=== PATIENT | female | born 1975 ===

== ENCOUNTER 2019-10-31 14:07 | Emergency (ER) | payer OTHER ==
[~2019-10-31] VITALS: Ht 162.6 cm; Wt 80.3 kg
== END 2019-10-31 17:37 | disposition home or self-care (01) ==
LOC: ER 14:07
DX: M54.2 Cervicalgia (principal); M62.838 Other muscle spasm; R07.89 Other chest pain; F41.8 Other specified anxiety disorders

== ENCOUNTER 2020-01-26 11:47 | Emergency (ER) | payer OTHER ==
[~2020-01-26] VITALS: Ht 160 cm; Wt 79.4 kg
== END 2020-01-26 22:19 | disposition home or self-care (01) ==
LOC: ER 11:47
DX: B34.9 Viral infection, unspecified (principal); B96.0 Mycoplasma pneumoniae [M. pneumoniae] as the cause of diseases classified elsewhere; Z03.818 Encounter for observation for suspected exposure to other biological agents ruled out; R05 Cough; R07.0 Pain in throat; R53.81 Other malaise

== ENCOUNTER 2020-01-28 14:04 | Inpatient (IN) | payer OTHER ==
[~2020-01-28] VITALS: Ht 162.6 cm; Wt 150.0 kg
[2020-01-28] MEDS ORDERED: ZITHROMAX500 MG (14:36)
--- NOTE | 2020-01-28 14:37 | NUR ---
SE RECIBE PTRE. FEMENINA ALERTA CONCIENTE Y OROIENTADA QUE REFIERE DIF PARA RESPIRAR, SOLOR EN CUERPO PECHO Y ESPALDA. REFIERE SALIO CON MICROPLASMA. SE REALIZA EKG Y SE PRESENTA A MAGDYEvelyn PICHARDO PARA EVALUACION Y FIRMA. SE PASA PTE. A SECCION K.
--- NOTE | 2020-01-28 15:44 | NUR ---
PTE ALERTA Y ORIENTADA X3, SE LE JAQUELIN MUESTRAS DE LAB. [facility] ORDEN MEDICA BAJO MEDIDAS ASEPTICAS. SE CANALIZA AREA DAVID DE EDEMA Y DE ENROJECIMIENTO. SE LE ADMINISTRAN MEDICAMENTOS PETEY ORDEN MEDICA. SE NOTIFICA A TERAPISTA DE TURNO SOBRE ABG Y TERAPIAS PENDIENTES. SE EDUCA A PTE SOBRE TRATAMIENTO MEDICO. PTE MANEJADO POR YANNA.
== END 2020-01-30 16:22 | disposition home or self-care (01) | DRG 177 ==
LOC: ER 14:04 → MEDJ 19:10
PROVIDERS: ADMIT Specialist; ATTEND Specialist
PROC: 3E0F7GC Introduction of Other Therapeutic Substance into Respiratory Tract, Via Natural or Artificial Opening (ICD-10-PCS; principal; 2020-01-28)
PROC: 4A033R1 Measurement of Arterial Saturation, Peripheral, Percutaneous Approach (ICD-10-PCS; 2020-01-28)
PROC: 8E0ZXY6 Isolation (ICD-10-PCS; 2020-01-28)
PROC: 4A12X4Z Monitoring of Cardiac Electrical Activity, External Approach (ICD-10-PCS; 2020-01-29)
DX: U07.1 COVID-19 (principal); J12.89 Other viral pneumonia; J15.7 Pneumonia due to Mycoplasma pneumoniae; A41.1 Sepsis due to other specified staphylococcus; F41.1 Generalized anxiety disorder

== ENCOUNTER 2020-06-09 02:49 | Emergency (ER) | payer OTHER ==
[~2020-06-09] VITALS: Ht 160 cm; Wt 83.9 kg
[~2020-06-09 02:49] MED LIST: ZITHROMAX500 MG
[2020-06-09] MEDS ORDERED: ZYNCOF 20-400120 ML PO (05:39)
[2020-06-09] MEDS ORDERED: PHENAGIL TABLE1 EACH PO (05:39)
== END 2020-06-09 05:53 | disposition home or self-care (01) ==
LOC: ER 02:49
DX: U07.1 COVID-19 (principal); J06.9 Acute upper respiratory infection, unspecified; B34.9 Viral infection, unspecified

== ENCOUNTER 2020-06-16 16:36 | Emergency (ER) | payer OTHER ==
[~2020-06-16] VITALS: Ht 160 cm; Wt 81.6 kg
[~2020-06-16 16:36] MED LIST changes: +PHENAGIL TABLE1 EACH PO; +ZYNCOF 20-400120 ML PO
== END 2020-06-16 20:51 | disposition home or self-care (01) ==
LOC: ER 16:36
DX: N83.292 Other ovarian cyst, left side (principal); R10.2 Pelvic and perineal pain

== ENCOUNTER 2020-07-10 18:48 | Emergency (ER) | payer OTHER ==
[~2020-07-10] VITALS: Ht 162.6 cm; Wt 77.1 kg
[2020-07-10] MEDS ORDERED: PRILOSEC OTC20 MG (19:04)
== END 2020-07-10 23:40 | disposition home or self-care (01) ==
LOC: ER 18:48
DX: R10.13 Epigastric pain (principal); R07.89 Other chest pain; M54.2 Cervicalgia; Z03.818 Encounter for observation for suspected exposure to other biological agents ruled out

== ENCOUNTER 2020-07-12 19:35 | Emergency (ER) | payer OTHER ==
[~2020-07-12] VITALS: Ht 162.6 cm; Wt 77.1 kg
[~2020-07-12 19:35] MED LIST changes: +PRILOSEC OTC20 MG
[2020-07-12] MEDS ORDERED: DOLOGEN CAPLET1 EACH PO (22:55)
[2020-07-12] MEDS ORDERED: CARAFATE1 GM PO (22:55)
[2020-07-12] MEDS ORDERED: PROTONIX40 MG PO (22:55)
== END 2020-07-12 23:02 | disposition home or self-care (01) ==
LOC: ER 19:35
DX: M54.2 Cervicalgia (principal); K29.60 Other gastritis without bleeding; R10.13 Epigastric pain

== ENCOUNTER 2020-09-30 00:34 | Emergency (ER) | payer OTHER ==
[~2020-09-30] VITALS: Ht 162.6 cm; Wt 74.8 kg
[~2020-09-30 00:34] MED LIST changes: +CARAFATE1 GM PO; +DOLOGEN CAPLET1 EACH PO; +PROTONIX40 MG PO
[2020-09-30] MEDS ORDERED: KETO10TA2 PO (02:18)
== END 2020-09-30 02:28 ==
LOC: ER 00:34
DX: S40.011A Contusion of right shoulder, initial encounter (principal); W18.39XA Other fall on same level, initial encounter; Y93.89 Activity, other specified; Y92.091 Bathroom in other non-institutional residence as the place of occurrence of the external cause

== ENCOUNTER 2020-10-11 21:43 | Emergency (ER) | payer OTHER ==
[~2020-10-11] VITALS: Ht 162.6 cm; Wt 77.1 kg
[~2020-10-11 21:43] MED LIST changes: +KETO10TA2 PO
[2020-10-12] MEDS ORDERED: PEPCID40 MG PO (03:16)
[2020-10-12] MEDS ORDERED: CARAFATE1 GM PO (03:16)
[2020-10-12] MEDS ORDERED: PROTONIX40 MG PO (03:16)
== END 2020-10-12 03:23 | disposition home or self-care (01) ==
LOC: ER 21:43
DX: K29.80 Duodenitis without bleeding (principal)

== ENCOUNTER 2021-05-10 09:54 | Emergency (ER) | payer OTHER ==
[~2021-05-10] VITALS: Ht 160 cm; Wt 76.2 kg
[~2021-05-10 09:54] MED LIST changes: +PEPCID40 MG PO
== END 2021-05-10 13:54 | disposition home or self-care (01) ==
LOC: ER 09:54
DX: K29.00 Acute gastritis without bleeding (principal)

== ENCOUNTER 2021-05-16 12:00 | Emergency (ER) | payer OTHER ==
[~2021-05-16] VITALS: Ht 160 cm; Wt 74.8 kg
[2021-05-16] MEDS ORDERED: PROTONIX20 MG PO (20:30)
[2021-05-16] MEDS ORDERED: CARAFATE1 GM PO (20:30)
[2021-05-16] MEDS ORDERED: PEPCID AC20 MG PO (20:30)
== END 2021-05-16 20:35 | disposition home or self-care (01) ==
LOC: ER 12:00
DX: K29.60 Other gastritis without bleeding (principal); R10.9 Unspecified abdominal pain

== ENCOUNTER 2022-02-01 10:35 | Emergency (ER) | payer OTHER ==
[~2022-02-01] VITALS: Ht 162.6 cm; Wt 74.8 kg
[~2022-02-01 10:35] MED LIST changes: +PEPCID AC20 MG PO; +PROTONIX20 MG PO
== END 2022-02-01 15:20 | disposition home or self-care (01) ==
LOC: ER 10:35
DX: R10.13 Epigastric pain (principal); T78.49XA Other allergy, initial encounter; X58.XXXA Exposure to other specified factors, initial encounter; Z88.5 Allergy status to narcotic agent